=== PATIENT | female | born 1935 | race Caucasian/White ===

== ENCOUNTER → 2017-01-17 | Outpatient (RCR) ==
[2015-11-10 16:40] VITALS: BMI 33.3
--- NOTE | 2016-12-27 14:26 | RS.OPPTEV2 ---
Date of Note: 12/25/16 Visit #: 1 Date of Evaluation: 12/25/16 Payer Source: MEDICARE Treatment Diagnosis: Left leg pain, s/p lumbar surgery History of Condition/Mechanism of Injury:: Patient reports having two procedures. States the first procedure was on 11/06/16 and the second procedure was on 11/08/16. Prior Level of Function.....Patient was independent with: ADL's, Self Care, Caregiving, Ambulation/Mobility, Community Integration/Access Functional Limitations: Self Care, ADL's, Reaching, Pushing, Pulling, Lifting, Carrying, Sitting, Standing, Bending, Squatting, Ambulation, Community Access/ Integration Current Subjective/complaints:: Patient report her back is doing well. Now she primarily has left leg pain, mostly at the anterior thigh region. States she has some tingling in the LE. States she has noticed some weakness in the LE's. Reports no symptoms on the right LE. She is not using an assistive device. She is wearing a back support and is to wear it until she goes back to her surgeon. She wear the back support all the time, except in bed or while sitting. She currently has bronchitis and he told her to take off the brace when she is sitting to allow the lungs to expand. Medical History Medical History: Hypertension, Arthritis Surgical History: Cholecystectomy, Hysterectomy Smoking Status: Never smoker Hx Home Medications: Pain medication Patient's Goals: Her goal is to get relief of left LE pain and return to her prior level of function. Pain Assessment - Pain Description Pain Location: left LE Current Pain Intensity: 1/10 Worst Pain Intensity: 9/10 Functional Outcome Measure Oswestry LBP: 46 - G Codes & Severity Modifier G Codes & Modifier: Mobility current CK. Mobility goal CI Source of G Code score: Oswestry LBP scale Observation - Observation Posture: Forward Head, Rounded Shoulders, Decreased Lumbar Lordosis Gait - Gait Pattern Gait Comments: patient ambulates without an assistive device, independently. she demonstrates a slow, guarded gait. Demonstrates short stride. - ROM Comments: Lumbar AROM not tested due to proximity of surgery date. LE AROM is WFL's. - Strength Comments: Left hip strength generally 4/5, all else of bilateral LE's 4+/5. Palpation Comments:: Patient reports no significant tenderness along the lumbar paraspinals. Demonstrates moderate muscle guarding along bilateral lumbar paraspinals. Sensation - Sensation Right Lower Extremity: Intact/Normal Left Lower Extremity: Intact/Normal Balance - Sitting Balance Static Sitting Balance: Good Dynamic Sitting Balance: Good - Standing Balance Static Standing Balance: Good (-) Dynamic Standing Balance: Good (-) Additional Comments: Additional Comments: Left SLR to 45 degrees, Right SLR to 50-55 degrees. Right LE is longer is supine. Interventions - Exercise/Activities/Manual Therapy Exercises/Activities: patient instructed in HEP consisting of hooklying alternating hip flexion, pelvic tilt, and pillow squeeze/hip adduction. Manual Therapy: NA HOME EXERCISE PROGRAM: hooklying alternating hip flexion, pelvic tilt, and pillow squeeze/hip adduction. - Charges Total Direct Minutes: 45 mins Total Treatment Time: 45 mins Procedures billed for this date of service:: MONSE Freed Assessment Assessment: Patient present s/p lumbar surgery. She has been diagnosed with Lumbar radiculopathy. She reports mostly left anterior thigh pain. She has difficulty tolerating prolonged standing or walking due to pain. She reports weakness in the left hip. She demonstrates good potential to benefit from therapeutic exercises to gain stability at her surgical site and strength in the LE's, to help improve her level of function. Patient Education: Education of diagnosis, Body/Joint mechanics, Home Exercise Program, Home Safety, Activity Modification, Education of Plan of Care Rehab Potential: Good Short Term Goals Goal #1: Patient independent in basic HEP Goal to be met by: 01/10/17 Goal #2: SLR equally to 60 degrees. Goal to be met by: 01/10/17 Goal #3: Left hip strength 4+/5. Goal to be met by: 01/10/17 Elevator Constructor Supervisor Goals Goal #1: Pt knows HEP and to continue ex's to maintain functional level. Goal to be met by: 02/15/17 Goal #2: Score on Oswestry LBP scale improved to < 19% impairment. Goal to be met by: 02/15/17 Goal #3: Pt to tolerate standing and walking without LLE pain. Goal to be met by: 02/15/17 Goal #4: Pt able to perform all ADL's and light activities w/o difficulty or pain. Goal to be met by: 02/15/17 Plan - Treatment to be Provided Procedures: Therapeutic Exercises, Therapeutic Activity, Neuromuscular Rehab, Patient Education Modalities: Electrical Stimulation, Cryotherapy, Hot Packs - Treatment Plan Frequency: 2 X week Duration: 6 weeks ORDER # VISITS AND/OR THROUGH DATE: 02/15/17 - Treatment Code (1) Left leg pain Comments: M79.605 (2) Lumbar radiculopathy Comments: M54.16
--- NOTE | 2016-12-28 10:57 | RS.OPPTDN ---
Subjective Date of Note: 12/28/16 Visit #: 2 Date of Evaluation: 12/25/16 Payer Source: MEDICARE Treatment Diagnosis: Left leg pain, s/p lumbar surgery Current Subjective/complaints:: Patient says she takes pain meds ~4-6 hours. She says she has no trouble sleeping and she is taking off her back brace mostly when she sits. Pain Assessment - Pain Description Pain Location: left LE Current Pain Intensity: 1/10 Interventions - Exercise/Activities/Manual Therapy Exercises/Activities: Patient receives passive stretching of: SKTC, HS, Piriformis, bilaterally x 3 reps. Patient performs: pillow squeezes, isometric hip flexion, abd, SAQ, DF green tband, pelvic tilts, alternate LE lift x 10 reps. Sitting: shoulder shrugs, scap adduction, marching, heel/toe raises x 10. Initiated stationary bike x 4 mins for/retro Total minutes of Exercise: 35 Manual Therapy: NA HOME EXERCISE PROGRAM: hooklying alternating hip flexion, pelvic tilt, and pillow squeeze/hip adduction. - Charges Total Direct Minutes: 35 Total Treatment Time: 35 Procedures billed for this date of service:: ex2 Assessment: Patient zackery all therex well. She demo tightness to L HS when compared to R. She should benefit from further trunk stability and build endurance. Patient Education: Education of diagnosis, Body/Joint mechanics, Home Exercise Program, Home Safety, Activity Modification, Education of Plan of Care Patient demonstrates compliance with HEP?: Yes Short Term Goals Goal #1: Patient independent in basic HEP Goal to be met by: 01/10/17 Progress towards Goal:: Progressing Goal #2: SLR equally to 60 degrees. Goal to be met by: 01/10/17 Goal #3: Left hip strength 4+/5. Goal to be met by: 01/10/17 Signalling And Communications Engineer Goals Goal #1: Pt knows HEP and to continue ex's to maintain functional level. Goal to be met by: 02/15/17 Goal #2: Score on Oswestry LBP scale improved to < 19% impairment. Goal to be met by: 02/15/17 Goal #3: Pt to tolerate standing and walking without LLE pain. Goal to be met by: 02/15/17 Goal #4: Pt able to perform all ADL's and light activities w/o difficulty or pain. Goal to be met by: 02/15/17 Plan PLAN OF CARE EXPIRES ON:: 02/15/17 ORDER # VISITS AND/OR THROUGH DATE: 02/15/17 PLAN: Progress Exercises
--- NOTE | 2017-01-02 10:26 | RS.OPPTDN ---
Subjective Date of Note: 01/01/17 Visit #: 3 Date of Evaluation: 12/25/16 Payer Source: MEDICARE Treatment Diagnosis: Left leg pain, s/p lumbar surgery Current Subjective/complaints:: Patient says she did not have any increase in pain following her last session. She and her ask about trying steps for exercise at her home. She says she has 2 steps and may try practicing a few times per day. Her asks if it would be alright to ride in a car for ~4 hours while they visit family next month. Pain Assessment - Pain Description Pain Location: left LE Current Pain Intensity: 08/29 Interventions - Exercise/Activities/Manual Therapy Exercises/Activities: Patient receives passive stretching of: SKTC, HS, Piriformis, bilaterally x 3 reps. Patient performs: pillow squeezes, isometric hip flexion, abd, SAQ, DF green tband, pelvic tilts, alternate LE lift x 10 reps. Sitting: shoulder shrugs, scap adduction with red tband, marching, heel/toe raises, LAQ x 10. Continued stationary bike x 4 mins for/ retro Total minutes of Exercise: 38 Manual Therapy: NA HOME EXERCISE PROGRAM: hooklying alternating hip flexion, pelvic tilt, and pillow squeeze/hip adduction. - Charges Total Direct Minutes: 38 Total Treatment Time: 38 Procedures billed for this date of service:: ex3 Assessment: Patient is able to zackery all therex well and appears to be eager to progress with therex here and at home. Demo good resistance with isometrics and improving flexibility. She was encouraged to talk to her MD about her travelling, but felt she would be fine with taking breaks, stretching, and walking around several times during the drive. Patient Education: Education of diagnosis, Body/Joint mechanics, Home Exercise Program, Home Safety, Activity Modification, Education of Plan of Care Patient demonstrates compliance with HEP?: Yes Short Term Goals Goal #1: Patient independent in basic HEP Goal to be met by: 01/10/17 Progress towards Goal:: Progressing Goal #2: SLR equally to 60 degrees. Goal to be met by: 01/10/17 Goal #3: Left hip strength 4+/5. Goal to be met by: 01/10/17 Custodial Goals Goal #1: Pt knows HEP and to continue ex's to maintain functional level. Goal to be met by: 02/15/17 Goal #2: Score on Oswestry LBP scale improved to < 19% impairment. Goal to be met by: 02/15/17 Goal #3: Pt to tolerate standing and walking without LLE pain. Goal to be met by: 02/15/17 Goal #4: Pt able to perform all ADL's and light activities w/o difficulty or pain. Goal to be met by: 02/15/17 Plan PLAN OF CARE EXPIRES ON:: 02/15/17 ORDER # VISITS AND/OR THROUGH DATE: 02/15/17 PLAN: Progress Exercises
--- NOTE | 2017-01-02 16:11 | RS.OPPTDN ---
Subjective Date of Note: 01/02/17 Visit #: 4 Date of Evaluation: 12/25/16 Payer Source: MEDICARE Treatment Diagnosis: Left leg pain, s/p lumbar surgery Current Subjective/complaints:: Patient c/o L ankle pain. She says it was bad last night and a little better today. Reports she has been walking around more. Pain Assessment - Pain Description Pain Location: left LE Current Pain Intensity: 1/10 Interventions - Exercise/Activities/Manual Therapy Exercises/Activities: Patient receives passive stretching of: SKTC, HS, Piriformis, bilaterally x 3 reps. Patient performs: pillow squeezes, isometric hip flexion, abd, SAQ, DF green tband, pelvic tilts, alternate LE lift increased to 2 x 10 reps. Sitting: shoulder shrugs, scap adduction with red tband, marching, heel/toe raises, LAQ x 10. Continued stationary bike x 6 mins for/retro Total minutes of Exercise: 40 Manual Therapy: NA HOME EXERCISE PROGRAM: hooklying alternating hip flexion, pelvic tilt, and pillow squeeze/hip adduction. - Charges Total Direct Minutes: 40 Total Treatment Time: 40 Procedures billed for this date of service:: ex3 Assessment: Patient progressing well with trunk stability and is able to rubina and doff back brace independently. C/c at this time is L lateral ankle pain. Patient Education: Education of diagnosis, Body/Joint mechanics, Home Exercise Program, Home Safety, Activity Modification, Education of Plan of Care Patient demonstrates compliance with HEP?: Yes Short Term Goals Goal #1: Patient independent in basic HEP Goal to be met by: 01/10/17 Progress towards Goal:: Progressing Goal #2: SLR equally to 60 degrees. Goal to be met by: 01/10/17 Progress towards Goal:: Progressing Goal #3: Left hip strength 4+/5. Goal to be met by: 01/10/17 Sand Blaster Goals Goal #1: Pt knows HEP and to continue ex's to maintain functional level. Goal to be met by: 02/15/17 Goal #2: Score on Oswestry LBP scale improved to < 19% impairment. Goal to be met by: 02/15/17 Goal #3: Pt to tolerate standing and walking without LLE pain. Goal to be met by: 02/15/17 Goal #4: Pt able to perform all ADL's and light activities w/o difficulty or pain. Goal to be met by: 02/15/17 Plan PLAN OF CARE EXPIRES ON:: 02/15/17 ORDER # VISITS AND/OR THROUGH DATE: 02/15/17 PLAN: Progress Exercises
--- NOTE | 2017-01-12 13:09 | RS.OPPTDN ---
Subjective Date of Note: 01/11/17 Visit #: 4 Date of Evaluation: 12/25/16 Payer Source: MEDICARE Treatment Diagnosis: Left leg pain, s/p lumbar surgery Current Subjective/complaints:: Patient states her L leg is still a problem, but is hurting less than when she first began therapy. She denies any soreness from therapy yesterday. Pain Assessment - Pain Description Pain Location: left LE Current Pain Intensity: 1/10 Interventions - Exercise/Activities/Manual Therapy Exercises/Activities: Patient receives passive stretching of: SKTC, HS, Piriformis, bilaterally x 3 reps. Patient performs: ball squeezes, isometric hip flexion, abd, SAQ 2#, DF green tband, pelvic tilts, alternate LE lift increased to 1 1/2# each leg 2 x 10 reps. Sitting: shoulder shrugs, scap adduction with red tband, marching, heel/toe raises, weight shifting on therapy foam using hand rail x 10, forward step board and lateral 2x5. Continued stationary bike x 8 mins for/retro Total minutes of Exercise: 42 Manual Therapy: NA HOME EXERCISE PROGRAM: hooklying alternating hip flexion, pelvic tilt, and pillow squeeze/hip adduction. - Charges Total Direct Minutes: 42 Total Treatment Time: 42 Procedures billed for this date of service:: ex3 Assessment: Patient zackery added therex well without c/o dizziness or demo of LOB. She admits improved L LE pain compared to first beginning therapy, but remains weak and sore when compared to the R. Patient Education: Education of diagnosis, Body/Joint mechanics, Home Exercise Program, Home Safety, Activity Modification, Education of Plan of Care Patient demonstrates compliance with HEP?: Yes Short Term Goals Goal #1: Patient independent in basic HEP Goal to be met by: 01/10/17 Progress towards Goal:: Progressing Goal #2: SLR equally to 60 degrees. Goal to be met by: 01/10/17 Progress towards Goal:: Progressing Goal #3: Left hip strength 4+/5. Goal to be met by: 01/10/17 Fci Goals Goal #1: Pt knows HEP and to continue ex's to maintain functional level. Goal to be met by: 02/15/17 Goal #2: Score on Oswestry LBP scale improved to < 19% impairment. Goal to be met by: 02/15/17 Goal #3: Pt to tolerate standing and walking without LLE pain. Goal to be met by: 02/15/17 Goal #4: Pt able to perform all ADL's and light activities w/o difficulty or pain. Goal to be met by: 02/15/17 Plan PLAN OF CARE EXPIRES ON:: 02/15/17 ORDER # VISITS AND/OR THROUGH DATE: 02/15/17 PLAN: Progress Exercises
--- NOTE | 2017-01-17 13:31 | RS.OPPTDN ---
Subjective Date of Note: 01/17/17 Visit #: 6 Date of Evaluation: 12/25/16 Payer Source: MEDICARE Treatment Diagnosis: Left leg pain, s/p lumbar surgery Current Subjective/complaints:: Patient says she is only taking one pain pill in the morning and one at bedtime. She says she is sleeping better and finds positioning is slightly easier. Her C/c is L knee pain, but does not feel exercises are irritating it. Pain Assessment - Pain Description Pain Location: left LE Current Pain Intensity: Back pain is not a prob, says L knee pain is c/c Interventions - Exercise/Activities/Manual Therapy Exercises/Activities: Patient receives passive stretching of: SKTC, HS, Piriformis, bilaterally x 3 reps. Patient performs: ball squeezes, isometric hip flexion, abd, SAQ 2#, DF green tband, pelvic tilts, alternate LE lift increased to 1 1/2# each leg 2 x 10 reps. Sitting: shoulder shrugs, scap adduction with red tband, marching, heel/toe raises, weight shifting on therapy foam using hand rail x 10, forward step board and lateral 2x5. 1 1/2# each ankle for hip abd and marching. Bike occupied, will attempt next session. Total minutes of Exercise: 38 Manual Therapy: NA HOME EXERCISE PROGRAM: hooklying alternating hip flexion, pelvic tilt, and pillow squeeze/hip adduction. - Charges Total Direct Minutes: 38 Total Treatment Time: 38 Procedures billed for this date of service:: ex3 Assessment: Patient weaning from back brace and walking around at home without it. Back pain is only slight, but her main issue is bilateral knee pain, more so the L. She is showing improved strength to both LE's and bal with dynamic activities. Patient Education: Education of diagnosis, Body/Joint mechanics, Home Exercise Program, Home Safety, Activity Modification, Education of Plan of Care Patient demonstrates compliance with HEP?: Yes Short Term Goals Goal #1: Patient independent in basic HEP Goal to be met by: 01/10/17 Progress towards Goal:: Progressing Goal #2: SLR equally to 60 degrees. Goal to be met by: 01/10/17 Progress towards Goal:: Progressing Goal #3: Left hip strength 4+/5. Goal to be met by: 01/10/17 Progress towards Goal:: Progressing Senior Living Goals Goal #1: Pt knows HEP and to continue ex's to maintain functional level. Goal to be met by: 02/15/17 Progress towards goal: Progressing Goal #2: Score on Oswestry LBP scale improved to < 19% impairment. Goal to be met by: 02/15/17 Progress towards goal: Progressing Goal #3: Pt to tolerate standing and walking without LLE pain. Goal to be met by: 02/15/17 Progress towards goal: Progressing Goal #4: Pt able to perform all ADL's and light activities w/o difficulty or pain. Goal to be met by: 02/15/17 Plan PLAN OF CARE EXPIRES ON:: 02/15/17 ORDER # VISITS AND/OR THROUGH DATE: 02/15/17 PLAN: Progress Exercises
== END ==
PROVIDERS: ATTEND Orthopaedic Surgery Orthopaedic Surgery of the Spine
DX: M54.16 Radiculopathy, lumbar region (principal)

== ENCOUNTER → 2017-02-16 | Outpatient (RCR) ==
[2015-11-10 16:40] VITALS: BMI 33.3
--- NOTE | 2017-01-22 10:50 | RS.OPPTDN ---
Subjective Date of Note: 01/22/17 Visit #: 7 Date of Evaluation: 12/25/16 Payer Source: MEDICARE Treatment Diagnosis: Left leg pain, s/p lumbar surgery Current Subjective/complaints:: Patient says her knees are really bothering her due to the weather. She says she has weaned to using her brace 50% of the time. Pain Assessment - Pain Description Pain Location: bilateral knees Interventions - Exercise/Activities/Manual Therapy Exercises/Activities: Patient receives passive stretching of: SKTC, HS, Piriformis, bilaterally x 3 reps. Patient performs: ball squeezes, isometric hip flexion, abd, SAQ increased to 3# for R, none on L, DF green tband, pelvic tilts, alternate LE lift with 2# wand for trunk 2 x 10 reps. Sitting: shoulder shrugs, scap adduction progressed to green tband, Standing: marching, heel/toe raises, weight shifting on therapy foam using hand rail x 10, 1 1/2# each ankle for hip abd and marching. Stationary bike for/retro x 7 mins Total minutes of Exercise: 38 Manual Therapy: NA HOME EXERCISE PROGRAM: hooklying alternating hip flexion, pelvic tilt, and pillow squeeze/hip adduction. - Charges Total Direct Minutes: 38 Total Treatment Time: 38 Procedures billed for this date of service:: ex3 Assessment: Patient having increased bilateral knee pain today she feels is weather related. She is weaning down her back brace and able to zackery increased activity in the department and working on HeP. HS length appears to be increased today. Patient Education: Education of diagnosis, Body/Joint mechanics, Home Exercise Program, Home Safety, Activity Modification, Education of Plan of Care Patient demonstrates compliance with HEP?: Yes Short Term Goals Goal #1: Patient independent in basic HEP Goal to be met by: 01/10/17 Progress towards Goal:: Progressing Goal #2: SLR equally to 60 degrees. Goal to be met by: 01/10/17 Progress towards Goal:: Progressing Goal #3: Left hip strength 4+/5. Goal to be met by: 01/10/17 Progress towards Goal:: Progressing Long-Term Goals Goal #1: Pt knows HEP and to continue ex's to maintain functional level. Goal to be met by: 02/15/17 Progress towards goal: Progressing Goal #2: Score on Oswestry LBP scale improved to < 19% impairment. Goal to be met by: 02/15/17 Progress towards goal: Progressing Goal #3: Pt to tolerate standing and walking without LLE pain. Goal to be met by: 02/15/17 Progress towards goal: Progressing Goal #4: Pt able to perform all ADL's and light activities w/o difficulty or pain. Goal to be met by: 02/15/17 Plan PLAN OF CARE EXPIRES ON:: 02/15/17 ORDER # VISITS AND/OR THROUGH DATE: 02/15/17 PLAN: Progress Exercises
--- NOTE | 2017-01-25 11:36 | RS.OPPTDN ---
Subjective Date of Note: 01/25/17 Visit #: 8 Date of Evaluation: 12/25/16 Payer Source: MEDICARE Treatment Diagnosis: Left leg pain, s/p lumbar surgery Current Subjective/complaints:: Patient says she still has pain to both knees which is limiting her ambulation. She c/o L more than R and generally throughout the knee. She says she uses ice at home and has mild swelling to the L knee. Pain Assessment - Pain Description Pain Location: bilateral knees Current Pain Intensity: Back pain is not a prob, says L knee pain is c/c Interventions - Exercise/Activities/Manual Therapy Exercises/Activities: Patient receives gentler passive stretching of: SKTC, HS, and lower trunk rotation bilaterally x 3 reps. Patient performs: ball squeezes , isometric hip flexion, abd, SAQ increased to 2# for R, none on L, DF green tband, pelvic tilts, alternate LE lift with 2# wand for trunk 2 x 10 reps. Sitting: shoulder shrugs, scap adduction progressed to green tband, Standing: marching, heel/toe raises, weight shifting on (no foam today) using hand rail x 10, Omitted some activity related to knee pain. Total minutes of Exercise: 38 Manual Therapy: NA HOME EXERCISE PROGRAM: hooklying alternating hip flexion, pelvic tilt, and pillow squeeze/hip adduction. - Charges Total Direct Minutes: 38 Total Treatment Time: 38 Procedures billed for this date of service:: ex3 Assessment: Patient continues with pain to bilateral knees especially the L generally throughout the joint. She is able to zackery all modified activity today with discomfort with nearly all therex regarding the L knee. Patient Education: Education of diagnosis, Body/Joint mechanics, Home Exercise Program, Home Safety, Activity Modification, Education of Plan of Care Short Term Goals Goal #1: Patient independent in basic HEP Goal to be met by: 01/10/17 Progress towards Goal:: Progressing Goal #2: SLR equally to 60 degrees. Goal to be met by: 01/10/17 Progress towards Goal:: Progressing Goal #3: Left hip strength 4+/5. Goal to be met by: 01/10/17 Progress towards Goal:: Progressing Director Of Casino Marketing Goals Goal #1: Pt knows HEP and to continue ex's to maintain functional level. Goal to be met by: 02/15/17 Progress towards goal: Progressing Goal #2: Score on Oswestry LBP scale improved to < 19% impairment. Goal to be met by: 02/15/17 Progress towards goal: Progressing Goal #3: Pt to tolerate standing and walking without LLE pain. Goal to be met by: 02/15/17 Progress towards goal: Progressing Goal #4: Pt able to perform all ADL's and light activities w/o difficulty or pain. Goal to be met by: 02/15/17 Plan PLAN OF CARE EXPIRES ON:: 02/15/17 ORDER # VISITS AND/OR THROUGH DATE: 02/15/17 PLAN: Progress Exercises (encouraged patient to try heat to the L knee if not swollen over the weekend for relief of pain and stiffness)
--- NOTE | 2017-01-29 10:53 | RS.OPPTDN ---
Subjective Date of Note: 01/29/17 Visit #: 9 Date of Evaluation: 12/25/16 Payer Source: MEDICARE Treatment Diagnosis: Left leg pain, s/p lumbar surgery Current Subjective/complaints:: Patient continues to report L knee pain. Says she could not tell a difference with avoiding some of the exercises last week. She says she is using a TENS unit to her L hip and leg over the weekend, which helped. Pain Assessment - Pain Description Pain Location: bilateral knees Current Pain Intensity: Back pain is not a prob, says L knee pain is c/c Interventions - Exercise/Activities/Manual Therapy Exercises/Activities: Patient receives gentler passive stretching of: SKTC, HS, and lower trunk rotation bilaterally x 3 reps. Patient performs: ball squeezes , isometric hip flexion, abd, SAQ 2# for R, none on L, DF green tband, pelvic tilts, alternate LE lift (no weight for LE's) with 2# wand for trunk 2 x 10 reps. Sitting: shoulder shrugs, scap adduction progressed to green tband, 2x10. Stationary bike x 6 mins for/retro with prompts to switch dir. Total minutes of Exercise: 38 Manual Therapy: NA HOME EXERCISE PROGRAM: hooklying alternating hip flexion, pelvic tilt, and pillow squeeze/hip adduction. - Charges Total Direct Minutes: 38 Total Treatment Time: 38 Procedures billed for this date of service:: ex3 Assessment: Angie continues with pain to the L knee despite being gentler with stretches and omitting some activities here. For the first time performing SAQ (no weight) on the L, she shakes and has a difficult time fully extending the knee. Patient Education: Education of diagnosis, Body/Joint mechanics, Home Exercise Program, Home Safety, Activity Modification, Education of Plan of Care Patient demonstrates compliance with HEP?: Yes Short Term Goals Goal #1: Patient independent in basic HEP Goal to be met by: 01/10/17 Progress towards Goal:: Progressing Goal #2: SLR equally to 60 degrees. Goal to be met by: 01/10/17 Progress towards Goal:: Progressing Goal #3: Left hip strength 4+/5. Goal to be met by: 01/10/17 Progress towards Goal:: Progressing Craft Superintendent Goals Goal #1: Pt knows HEP and to continue ex's to maintain functional level. Goal to be met by: 02/15/17 Progress towards goal: Progressing Goal #2: Score on Oswestry LBP scale improved to < 19% impairment. Goal to be met by: 02/15/17 Progress towards goal: Progressing Goal #3: Pt to tolerate standing and walking without LLE pain. Goal to be met by: 02/15/17 Progress towards goal: Progressing Goal #4: Pt able to perform all ADL's and light activities w/o difficulty or pain. Goal to be met by: 02/15/17 Plan PLAN OF CARE EXPIRES ON:: 02/15/17 ORDER # VISITS AND/OR THROUGH DATE: 02/15/17 PLAN: Continue Plan of Care (as able)
--- NOTE | 2017-02-01 13:53 | RS.OPPTDN ---
Subjective Date of Note: 02/01/17 Visit #: 10 Date of Evaluation: 12/25/16 Payer Source: MEDICARE Treatment Diagnosis: Left leg pain, s/p lumbar surgery Current Subjective/complaints:: Patient says she has a new order for 6 more weeks. She states her L knee is really bothering her, but her PA says it is related to nerve pain from her back and will just need to heal (per patient). Pain Assessment - Pain Description Pain Location: bilateral knees Current Pain Intensity: Back pain is not a prob, says L knee pain is c/c - Treatment Modality: Electrical Stim Unattended Parameters/Method Applied: hivolt vertically @ 150 pk volts x 20 mins to bilateral lumbar paraspinals and superior gluteal region Patient Position: Supine - Heat/Cryotherapy Treatment: Hot Pack (mid to low back supine and to L knee) Interventions - Exercise/Activities/Manual Therapy Exercises/Activities: Patient performs: ball squeezes, isometric hip flexion, abd, SAQ 2# for R, none on L, DF green tband, pelvic tilts, hip abd in hooklying with red tband, QS 2x10. Total minutes of Exercise: 22 Manual Therapy: NA HOME EXERCISE PROGRAM: hooklying alternating hip flexion, pelvic tilt, and pillow squeeze/hip adduction. - Charges Total Direct Minutes: 22 Total Treatment Time: 42 Procedures billed for this date of service:: hp, estim (un), ex Assessment: Patient had continued with moderate L knee pain and difficulty with ambulation as a result. With adding estim/heat today, knee pain was lessened and had significantly less difficulty with performing therex on the L side. She has a new order to continue 3x6 weeks, will continue modalities to check for improvement with pain. Patient Education: Education of diagnosis, Body/Joint mechanics, Home Exercise Program, Home Safety, Activity Modification, Education of Plan of Care Patient demonstrates compliance with HEP?: Yes (when able) Short Term Goals Goal #1: Patient independent in basic HEP Goal to be met by: 01/10/17 Progress towards Goal:: Progressing Goal #2: SLR equally to 60 degrees. Goal to be met by: 01/10/17 Progress towards Goal:: Progressing Goal #3: Left hip strength 4+/5. Goal to be met by: 01/10/17 Progress towards Goal:: Progressing Graphic Engineer Goals Goal #1: Pt knows HEP and to continue ex's to maintain functional level. Goal to be met by: 03/15/17 Progress towards goal: Progressing Goal #2: Score on Oswestry LBP scale improved to < 19% impairment. Goal to be met by: 03/15/17 Progress towards goal: Progressing Goal #3: Pt to tolerate standing and walking without LLE pain. Goal to be met by: 03/15/17 Progress towards goal: Progressing Goal #4: Pt able to perform all ADL's and light activities w/o difficulty or pain. Goal to be met by: 03/15/17 Plan PLAN OF CARE EXPIRES ON:: 03/15/17 ORDER # VISITS AND/OR THROUGH DATE: 03/15/17 PLAN: Progress Exercises (continue modalities)
--- NOTE | 2017-02-05 14:52 | RS.OPPTDN ---
Subjective Date of Note: 02/05/17 Visit #: 11 Date of Evaluation: 12/25/16 Payer Source: MEDICARE Treatment Diagnosis: Left leg pain, s/p lumbar surgery Current Subjective/complaints:: Patient says she feels the estim helped her leg pain. She says she has fully weaned from her brace. Pain Assessment - Pain Description Pain Location: bilateral knees Current Pain Intensity: Back pain is not a prob, says L knee pain is c/c - Treatment Modality: Electrical Stim Unattended Parameters/Method Applied: hivolt x 20 mins @ 135-175 pk volts to the bilateral lumbar paraspinals and superior gluteal region Patient Position: Supine - Heat/Cryotherapy Treatment: Hot Pack (low back) Interventions - Exercise/Activities/Manual Therapy Exercises/Activities: Patient receives passive stretching bilaterally SKTC, HS, piriformis, lower trunk rotation. Patient performs: ball squeezes, isometric hip flexion, abd, SAQ 2 1/2# for R, none on L, DF green tband, pelvic tilts, hip abd in hooklying with red tband, QS 2x10. Total minutes of Exercise: 22 Manual Therapy: NA HOME EXERCISE PROGRAM: hooklying alternating hip flexion, pelvic tilt, and pillow squeeze/hip adduction. - Charges Total Direct Minutes: 22 Total Treatment Time: 42 Procedures billed for this date of service:: hp, estim (un Assessment: Patient experiencing less L LE pain following estim today and previous session. She demo improved ease and zackery of therex today. Patient Education: Education of diagnosis, Body/Joint mechanics, Home Exercise Program, Home Safety, Activity Modification, Education of Plan of Care Patient demonstrates compliance with HEP?: Yes Short Term Goals Goal #1: Patient independent in basic HEP Goal to be met by: 01/10/17 Progress towards Goal:: Progressing Goal #2: SLR equally to 60 degrees. Goal to be met by: 01/10/17 Progress towards Goal:: Progressing Goal #3: Left hip strength 4+/5. Goal to be met by: 01/10/17 Progress towards Goal:: Progressing Stitcher Set Up Operator Automatic Goals Goal #1: Pt knows HEP and to continue ex's to maintain functional level. Goal to be met by: 03/15/17 Progress towards goal: Progressing Goal #2: Score on Oswestry LBP scale improved to < 19% impairment. Goal to be met by: 03/15/17 Progress towards goal: Progressing Goal #3: Pt to tolerate standing and walking without LLE pain. Goal to be met by: 03/15/17 Progress towards goal: Progressing Goal #4: Pt able to perform all ADL's and light activities w/o difficulty or pain. Goal to be met by: 03/15/17 Plan PLAN OF CARE EXPIRES ON:: 02/13/17 ORDER # VISITS AND/OR THROUGH DATE: 03/15/17 PLAN: Progress Exercises (continue modalities)
--- NOTE | 2017-02-07 14:42 | RS.OPPTDN ---
Subjective Date of Note: 02/07/17 Visit #: 12 Date of Evaluation: 12/25/16 Payer Source: MEDICARE Treatment Diagnosis: Left leg pain, s/p lumbar surgery Current Subjective/complaints:: Patient c/o increased pain today. She says she felt better after last session and feels estim is helping, just having a bad day today. Pain Assessment - Pain Description Pain Location: L knee Current Pain Intensity: Back pain is not a prob, says L knee pain is c/c - Treatment Modality: Electrical Stim Unattended Parameters/Method Applied: IFC @ 18 pk volts x 20 mins to mid to low back Patient Position: Supine - Heat/Cryotherapy Treatment: Hot Pack Interventions - Exercise/Activities/Manual Therapy Exercises/Activities: Patient receives passive stretching bilaterally SKTC, HS, piriformis, lower trunk rotation. Patient performs: ball squeezes, isometric hip flexion, abd, SAQ 2 1/2# for R, none on L, DF green tband, pelvic tilts, hip abd in hooklying with red tband, QS 2x10. Total minutes of Exercise: 22 Manual Therapy: NA HOME EXERCISE PROGRAM: hooklying alternating hip flexion, pelvic tilt, and pillow squeeze/hip adduction. - Charges Total Direct Minutes: 22 Total Treatment Time: 42 Procedures billed for this date of service:: hp, estim (un), ex Assessment: Patient admitting increased pain today, but was reduced with modalities. She had ambulated with less guarded gt upon leaving session today. HS stretching zackery better to the L. Patient Education: Education of diagnosis, Body/Joint mechanics, Home Exercise Program, Home Safety, Activity Modification, Education of Plan of Care Patient demonstrates compliance with HEP?: Yes Short Term Goals Goal #1: Patient independent in basic HEP Goal to be met by: 01/10/17 Progress towards Goal:: Progressing Goal #2: SLR equally to 60 degrees. Goal to be met by: 01/10/17 Progress towards Goal:: Progressing Goal #3: Left hip strength 4+/5. Goal to be met by: 01/10/17 Progress towards Goal:: Progressing Deputy Director Goals Goal #1: Pt knows HEP and to continue ex's to maintain functional level. Goal to be met by: 03/15/17 Progress towards goal: Progressing Goal #2: Score on Oswestry LBP scale improved to < 19% impairment. Goal to be met by: 03/15/17 Progress towards goal: Progressing Goal #3: Pt to tolerate standing and walking without LLE pain. Goal to be met by: 03/15/17 Progress towards goal: Progressing Goal #4: Pt able to perform all ADL's and light activities w/o difficulty or pain. Goal to be met by: 03/15/17 Plan PLAN OF CARE EXPIRES ON:: 03/15/17 ORDER # VISITS AND/OR THROUGH DATE: 03/15/17 PLAN: Continue Plan of Care
--- NOTE | 2017-02-12 14:21 | RS.OPPTDN ---
Subjective Date of Note: 02/12/17 Visit #: 13 Date of Evaluation: 12/25/16 Payer Source: MEDICARE Treatment Diagnosis: Left leg pain, s/p lumbar surgery Current Subjective/complaints:: Patient says treatment relief seems to be for 1- 2 days. She says her back is fine, but still battling with the L knee. She has a MD appt at the same day as PT and asks to cancel it. Pain Assessment - Pain Description Pain Location: L knee Current Pain Intensity: Back pain is not a prob, says L knee pain is c/c - Treatment Modality: Electrical Stim Unattended Parameters/Method Applied: hivolt 4 large pads @ 205 pk volts x 20 mins to bilateral lumbar paraspinals and into SI region. Patient Position: Supine - Heat/Cryotherapy Treatment: Hot Pack Interventions - Exercise/Activities/Manual Therapy Exercises/Activities: Patient receives passive stretching bilaterally SKTC, HS, piriformis, lower trunk rotation. Patient performs: ball squeezes, isometric hip flexion, abd, SAQ 2 1/2# for R, none on L, DF green tband, pelvic tilts, hip abd in hooklying with red tband, QS 2x10. Total minutes of Exercise: 22 Manual Therapy: NA HOME EXERCISE PROGRAM: hooklying alternating hip flexion, pelvic tilt, and pillow squeeze/hip adduction. - Charges Total Direct Minutes: 22 Total Treatment Time: 42 Procedures billed for this date of service:: hp, estim (un), ex Assessment: Patient experiencing about 1-2 days of relief with therapy, but remains with L knee being the most problematic. She denies having any trouble now with amb after being fully weaned from her back brace. Patient Education: Education of diagnosis, Body/Joint mechanics, Home Exercise Program, Home Safety, Activity Modification, Education of Plan of Care Patient demonstrates compliance with HEP?: Yes Short Term Goals Goal #1: Patient independent in basic HEP Goal to be met by: 01/10/17 Progress towards Goal:: Progressing Goal #2: SLR equally to 60 degrees. Goal to be met by: 01/10/17 Progress towards Goal:: Progressing Goal #3: Left hip strength 4+/5. Goal to be met by: 01/10/17 Progress towards Goal:: Progressing Residential Goals Goal #1: Pt knows HEP and to continue ex's to maintain functional level. Goal to be met by: 03/15/17 Progress towards goal: Progressing Goal #2: Score on Oswestry LBP scale improved to < 19% impairment. Goal to be met by: 03/15/17 Progress towards goal: Progressing Goal #3: Pt to tolerate standing and walking without LLE pain. Goal to be met by: 03/15/17 Progress towards goal: Progressing Goal #4: Pt able to perform all ADL's and light activities w/o difficulty or pain. Goal to be met by: 03/15/17 Plan PLAN OF CARE EXPIRES ON:: 03/15/17 ORDER # VISITS AND/OR THROUGH DATE: 03/15/17 PLAN: Progress Exercises
--- NOTE | 2017-02-16 14:33 | RS.OPPTDN ---
Subjective Date of Note: 02/16/17 Visit #: 14 Date of Evaluation: 12/25/16 Payer Source: MEDICARE Treatment Diagnosis: Left leg pain, s/p lumbar surgery Current Subjective/complaints:: Patient says she had more soreness after her last therapy session, but when she had awakened in the morning it was significantly less than usual. C/c is L leg pain. Denies back pain as of current. Pain Assessment - Pain Description Pain Location: L knee Current Pain Intensity: no back pain, only L LE pain - Treatment Modality: Electrical Stim Unattended Parameters/Method Applied: 4 large pads hivolt vertically @ 180-205 pk volts x 20 mins to bilateral lumbar and superior glut region Patient Position: Supine - Heat/Cryotherapy Treatment: Hot Pack (mid to low back) Interventions - Exercise/Activities/Manual Therapy Exercises/Activities: Patient receives passive stretching bilaterally SKTC, HS, omitted piriformis for the L, lower trunk rotation. Patient performs: ball squeezes, isometric hip flexion, abd, SAQ 3# for R, none on L, DF green tband, pelvic tilts, hip abd in hooklying with red tband, QS 2x10. Returned to stationary bike x 5 mins for/retro. Total minutes of Exercise: 22 Manual Therapy: NA HOME EXERCISE PROGRAM: hooklying alternating hip flexion, pelvic tilt, and pillow squeeze/hip adduction. - Charges Total Direct Minutes: 22 Total Treatment Time: 42 Procedures billed for this date of service:: hp, estim (un), ex Assessment: Patient shows improved zackery to activity in dept with more controlled motion with regards to the L LE and increased manual resistance. She resumed the stationary bike without difficulty today. Popping felt with SAQ (L). Patient Education: Education of diagnosis, Body/Joint mechanics, Home Exercise Program, Home Safety, Activity Modification, Education of Plan of Care Patient demonstrates compliance with HEP?: Yes Short Term Goals Goal #1: Patient independent in basic HEP Goal to be met by: 01/10/17 Progress towards Goal:: Met Goal #2: SLR equally to 60 degrees. Goal to be met by: 01/10/17 Progress towards Goal:: Progressing Goal #3: Left hip strength 4+/5. Goal to be met by: 01/10/17 Progress towards Goal:: Met Swine Nutritionist Goals Goal #1: Pt knows HEP and to continue ex's to maintain functional level. Goal to be met by: 03/15/17 Progress towards goal: Progressing Goal #2: Score on Oswestry LBP scale improved to < 19% impairment. Goal to be met by: 03/15/17 Progress towards goal: Progressing Goal #3: Pt to tolerate standing and walking without LLE pain. Goal to be met by: 03/15/17 Progress towards goal: Progressing Goal #4: Pt able to perform all ADL's and light activities w/o difficulty or pain. Goal to be met by: 03/15/17 Plan PLAN OF CARE EXPIRES ON:: 03/15/17 ORDER # VISITS AND/OR THROUGH DATE: 03/15/17 PLAN: Progress Exercises (continue x 1 more week per continuation order)
== END ==
PROVIDERS: ATTEND Orthopaedic Surgery Orthopaedic Surgery of the Spine
DX: M54.5 Low back pain (principal)

== ENCOUNTER 2017-02-22 10:00 | Outpatient (RCR) ==
[2015-11-10 16:40] VITALS: BMI 33.3
--- NOTE | 2017-02-19 15:15 | RS.OPPTDN ---
Subjective Date of Note: 02/19/17 Visit #: 14 Date of Evaluation: 12/25/16 Payer Source: MEDICARE Treatment Diagnosis: Left leg pain, s/p lumbar surgery Current Subjective/complaints:: Patient says her L leg is getting stronger and pain is less intense and less frequent to the L thigh. She does c/o pain that is mild and intermittent at the lateral lower L leg. Pain Assessment - Pain Description Pain Location: L knee Current Pain Intensity: no back pain, only L LE pain - Treatment Modality: Electrical Stim Unattended Parameters/Method Applied: hivolt 4 large pads @ 180 pk volts x 20 mins to the lumbar paraspinals Treatment Area: placed vertically to the low back Patient Position: Supine - Heat/Cryotherapy Treatment: Hot Pack (mid to low back ) Interventions - Exercise/Activities/Manual Therapy Exercises/Activities: Patient performs continued trunk stability and strengthening to the L knee. ball squeezes, isometric hip flexion, abd, SAQ 3 # for R, added 1# for L, DF green tband, pelvic tilts, hip abd in hooklying with green tband, QS 2x10. SLR x 10. Returned to stationary bike x 7 mins for/ retro. Total minutes of Exercise: 17 Manual Therapy: NA HOME EXERCISE PROGRAM: hooklying alternating hip flexion, pelvic tilt, and pillow squeeze/hip adduction. - Charges Total Direct Minutes: 17 Total Treatment Time: 37 Procedures billed for this date of service:: hp, estim (un), ex Assessment: Patient progressing with less pain to the L upper leg, but maintains mild pain to the lateral portion of the knee and extending to the lateral calf. She demo no difficulty now with adding weight to the L LE and demo good resistance during isometrics to that side. Improved ease with bed transfers related to her back. Patient Education: Education of diagnosis, Body/Joint mechanics, Home Exercise Program, Home Safety, Activity Modification, Education of Plan of Care Patient demonstrates compliance with HEP?: Yes Short Term Goals Goal #1: Patient independent in basic HEP Goal to be met by: 01/10/17 Progress towards Goal:: Met Goal #2: SLR equally to 60 degrees. Goal to be met by: 01/10/17 Progress towards Goal:: Progressing Goal #3: Left hip strength 4+/5. Goal to be met by: 01/10/17 Progress towards Goal:: Met Bi Tri Operator Goals Goal #1: Pt knows HEP and to continue ex's to maintain functional level. Goal to be met by: 03/15/17 Progress towards goal: Progressing Goal #2: Score on Oswestry LBP scale improved to < 19% impairment. Goal to be met by: 03/15/17 Progress towards goal: Progressing Goal #3: Pt to tolerate standing and walking without LLE pain. Goal to be met by: 03/15/17 Progress towards goal: Progressing Goal #4: Pt able to perform all ADL's and light activities w/o difficulty or pain. Goal to be met by: 03/15/17 Plan PLAN OF CARE EXPIRES ON:: 03/15/17 ORDER # VISITS AND/OR THROUGH DATE: 03/15/17 PLAN: Progress Exercises
--- NOTE | 2017-02-22 16:54 | RS.OPPTDN ---
Subjective Date of Note: 02/22/17 Visit #: 15 Date of Evaluation: 12/25/16 Payer Source: MEDICARE Treatment Diagnosis: Left leg pain, s/p lumbar surgery Current Subjective/complaints:: Patient says her pain is primarily the L knee joint. She is hopeful to prolong possible TKA. She says that L thigh pain is much better and now closer to the upper thigh and hip instead of traveling to the knee. Denies soreness to the back currently. Pain Assessment - Pain Description Pain Location: L knee Current Pain Intensity: no back pain, only L knee pain - Treatment Modality: Electrical Stim Unattended Parameters/Method Applied: hivolt 4 large pads vertically to the lumbar paraspinals and SI @ 150 pk volts x 20 mins to improve L LE pain and localize to the low back. Patient Position: Supine - Heat/Cryotherapy Treatment: Hot Pack Interventions - Exercise/Activities/Manual Therapy Exercises/Activities: Patient resumed receiving low back stretching of HS, SKTC , and Piriformis bilaterally x 3. She performs continued trunk stability and strengthening to the L knee. ball squeezes, isometric hip flexion, abd, SAQ 3 # for R, added 1# for L, DF green tband, pelvic tilts, hip abd in hooklying with green tband, QS 2x10. SLR x 10. Returned to stationary bike x 8 mins for/ retro. Total minutes of Exercise: 22 Manual Therapy: NA HOME EXERCISE PROGRAM: hooklying alternating hip flexion, pelvic tilt, and pillow squeeze/hip adduction. - Charges Total Direct Minutes: 22 Total Treatment Time: 42 Procedures billed for this date of service:: no charges this date Assessment: Improved radiating symptoms to the L LE now isolated to the upper thigh and hip. No back pain currently and L knee joint pain related to OA. She has completely weaned from her brace and progressing with therex well showing improved HS length. Patient Education: Education of diagnosis, Body/Joint mechanics, Home Exercise Program, Home Safety, Activity Modification, Education of Plan of Care Patient demonstrates compliance with HEP?: Yes Short Term Goals Goal #1: Patient independent in basic HEP Goal to be met by: 01/10/17 Progress towards Goal:: Met Goal #2: SLR equally to 60 degrees. Goal to be met by: 01/10/17 Progress towards Goal:: Met Goal #3: Left hip strength 4+/5. Goal to be met by: 01/10/17 Progress towards Goal:: Met Retirement Goals Goal #1: Pt knows HEP and to continue ex's to maintain functional level. Goal to be met by: 03/15/17 Progress towards goal: Progressing Goal #2: Score on Oswestry LBP scale improved to < 19% impairment. Goal to be met by: 03/15/17 Progress towards goal: Progressing Goal #3: Pt to tolerate standing and walking without LLE pain. Goal to be met by: 03/15/17 Progress towards goal: Progressing Goal #4: Pt able to perform all ADL's and light activities w/o difficulty or pain. Goal to be met by: 03/15/17 Plan PLAN OF CARE EXPIRES ON:: 03/15/17 ORDER # VISITS AND/OR THROUGH DATE: 03/15/17 PLAN: Plan for Discharge (Patient was notified about her insurance allowance will progress HEP on her own at this point)
== END 2017-03-19 ==
PROVIDERS: ATTEND Orthopaedic Surgery Orthopaedic Surgery of the Spine
DX: M54.5 Low back pain (principal)

== ENCOUNTER 2017-05-30 10:44 | Outpatient (CLI) ==
[2015-11-10 16:40] VITALS: BMI 33.3
[2017-05-30 11:12] LABS: HEMATOCRIT 30.7 % (37.0-47.0); HEMOGLOBIN 10.4 g/dl (12.0-16.0); MEAN CORPUSCULAR HEMOGLOBIN 30.2 pg (27.0-31.0); MEAN CORPUSCULAR HGB CONC 33.9 (31.8-35.4); MEAN CORPUSCULAR VOLUME 89.2 fl (81.0-99.0); RED BLOOD COUNT 3.44 10^6/ul (4.20-5.40); WHITE BLOOD COUNT 6.49 K/ul (4.6-10.2)
[2017-05-30 11:23] LABS: ADD URINE MICROSCOPIC YES; BILIRUBIN,URINE Negative (NEGATIVE); KETONES,URINE Negative (NEGATIVE); LEUKOCYTE ESTERASE ,URINE Negative (NEGATIVE); NITRITE,URINE Negative (NEGATIVE); PROTEIN,URINE Negative (NEGATIVE); URINE, BLOOD Trace-intact (NEGATIVE)
[2017-05-30 11:51] LABS: ALBUMIN 3.6 g/dL (3.4-5.0); ANION GAP 12.8; BUN/CREATININE RATIO 13.82; CALCIUM 9.5 mg/dL (8.2-10.2); CREATININE 0.94 mg/dL (0.60-1.30); MAGNESIUM 1.9 mg/dL (1.7-2.2); PHOSPHORUS 3.8 mg/dL (2.8-4.1); POTASSIUM 3.8 mmol/L (3.5-5.10); URIC ACID 4.1 mg/dL (2.4-6.0)
[2017-05-31 09:37] LABS: URINE CREATININE 36.1 mg/dL (Not Estab.); URINE TOTAL PROTEIN 6.1 mg/dL (Not Estab.)
== END 2017-05-30 10:45 | disposition home or self-care (01) ==
LOC: LAB 10:44
PROVIDERS: ATTEND Internal Medicine Nephrology
DX: N18.3 Chronic kidney disease, stage 3 (moderate) (principal); I10 Essential (primary) hypertension
CPT/HCPCS: 36415; 80069; 81001; 82306; 82570; 83735; 83970; 84156; 84550; 85027

== ENCOUNTER 2017-06-05 09:32 | Outpatient (CLI) | payer OTHER ==
[2015-11-10 16:40] VITALS: BMI 33.3
--- NOTE | 2017-06-06 08:44 | MAMMO ---
EXAM: Bilateral digital screening mammogram (2-D and 3-D) History: Screening Comparison: Bilateral mammogram 04/25/2016 Findings: MLO and CC views of bilateral breasts demonstrate scattered fibroglandular breast parenchy ma. CAD was reviewed by the radiologist. Tomosynthesis was performed. Stable benign bilateral [address] calcifications and stable benign bilateral breast nodules. There are no dominant masses, no suspi cious microcalcifications and no architectural distortions Impression: Benign stable mammogram. Recommend followup routine screening mammography in 1 year. BIRADS 2
== END 2017-06-05 09:33 | disposition home or self-care (01) ==
LOC: RAD 09:32
PROVIDERS: ATTEND Internal Medicine
DX: Z12.31 Encounter for screening mammogram for malignant neoplasm of breast (principal)
CPT/HCPCS: 77067

== ENCOUNTER 2017-08-29 10:34 | Emergency (ER) ==
[2017-08-29 10:38] VITALS: BP 128/61; TEMP 98.2; BMI 31.4
[2017-08-29] MEDS ORDERED: ZOFRAN 4 MG/2 ML IM STA (10:51)
--- NOTE | 2017-08-29 11:44 | DI ---
EXAM: Two views of the chest. History: Cough. Comparison: Chest radiograph 11/14/2015 Findings: Heart size is upper limits of normal. Elevated right hemidiaphragm again noted. Persiste nt but improving right middle lobe discoid atelectasis. No developing opacities. No acute osseous a bnormalities. Impression: Persistent but improving right middle lobe discoid atelectasis. No developing infiltrate s.
--- NOTE | 2017-08-29 11:53 | CT ---
EXAM: CT of the abdomen pelvis without contrast History: Abdominal pain, nausea and vomiting, left lower quadrant abdominal pain. Comparison: CT abdomen pelvis 05/01/2013 Technique: Multiplanar CT images through the abdomen pelvis were obtained without the administration of IV contrast Findings: Subsegmental atelectasis seen at the lung bases. No acute osseous abnormalities. Postsur gical changes of the lumbar spine. Severe degenerative disc disease at L1-L2, L2-L3 and L5-S1. Stable hepatic cyst. Status post cholecystectomy. Spleen is unremarkable. No peripancreatic inflam mation. Mild atherosclerotic vascular calcifications. Adrenal glands are unremarkable. No renal st ones and no hydronephrosis. 3 cm simple left renal cyst again noted. No bowel obstruction. No free air and no ascites. Colonic diverticulosis. Bladder is not well distended. No focal bladder wall thickening. No perirectal inflammation. Nondilated fluid filled loops of small bowel. There is flu id seen within the colon. Uterus is not seen. Impression: 1. Mild gastroenteritis most likely viral etiology. There is no bowel obstruction. 2. Colonic diverticulosis with no evidence for diverticulitis. 3. Stable simple hepatic cyst. 4. Stable simple left renal cyst
--- NOTE | 2017-08-29 12:04 | ED.PDOC ---
General ED Provider: Dr. JIMENA STERN Chief Complaint: Nausea/Vomiting Stated Complaint: diarrhea Time Seen by Physician: 10:40 (seen with entire nursing staff for a few bouts of diarrhea ) Mode of Arrival: Walk-In Information Source: Patient Exam Limitations: No limitations Primary Care Provider: PHANI KASPER Nursing and Triage Documentation Reviewed and Agree: Yes (no BLACK OR BLOODY STOOLS) Reviewed sepsis parameters & appropriate labs ordered?: Yes System Inflammatory Response Syndrome: Not Applicable Sepsis Protocol: For patient's 13 years and over: Temp is 96.8 and below OR 101 and greater Pulse >90 BPM Resp >20/minute Acutely Altered Mental Status Are patient's symptoms suggestive of a new infection, such as: -Pneumonia -Skin, Soft Tissue -Endocarditis -UTI -Bone, Joint Infection -Implantable Device -Acute Abdominal Infection -Wound Infection -Meningitis -Blood Stream Catheter Infection -Unknown System Inflammatory Response Syndrome: Not Applicable GI Complaint Exam - Vomiting/Diarrhea Complaint/Exam Onset/Duration: 1 day Symptoms Are: Resolved Episodes of Vomiting over last 24 Hours: 0 Episodes of Diarrhea Over Last 24 Hours: 4 Initial Severity: Mild Current Severity: None Aggravating: Reports: None Alleviating: Reports: None Associated Signs and Symptoms: Denies: Dizziness, Light-headedness, Melena, Hematemesis, Fever, Abdominal pain, Cramping Non-GI Risk Factors: Reports: None Surgical Obstruction Risk Factors: Reports: None Related Surgical History: Reports: None Abdominal Findings: Present: None Differential Diagnoses: Viral Gastroenteritis Review of Systems - Review Of Systems Constitutional: Reports: No symptoms Eyes: Reports: No symptoms Ears, Nose, Mouth, Throat: Reports: No symptoms Respiratory: Reports: No symptoms Cardiac: Reports: No symptoms GI: Reports: No symptoms, Diarrhea, Nausea : Reports: No symptoms Musculoskeletal: Reports: No symptoms Skin: Reports: No symptoms Neurological: Reports: No symptoms Endocrine: Reports: No symptoms Hematologic/Lymphatic: Reports: No symptoms All Other Systems: Reviewed and Negative Past Medical History - Past Medical History Previously Healthy: No Endocrine: Reports: None Cardiovascular: Reports: Hypertension Respiratory: Reports: COPD Hematological: Reports: None Gastrointestinal: Reports: GERD Genitourinary: Reports: None Neuro/Psych: Reports: None Musculoskeletal: Reports: None Cancer: Reports: None Last Menstrual Period: n/a - Surgical History General Surgical History: Reports: None - Family History Family History: Reports: None - Social History Smoking Status: Never smoker Hx Substance Use: No Alcohol Screening: Occasionally Physical Exam - Physical Exam Appearance: Well-appearing, No pain distress, Well-nourished Eyes: JEAN, EOMI, Conjunctiva clear ENT: Ears normal, Nose normal, Oropharynx normal Respiratory: Airway patent, Breath sounds clear, Breath sounds equal, Respirations nonlabored Cardiovascular: RRR, Pulses normal, No rub, No murmur GI/: Soft, Nontender, No masses, Bowel sounds normal, No Organomegaly Musculoskeletal: Normal strength, ROM intact, No edema, No calf tenderness Skin: Warm, Dry, Normal color Neurological: Sensation intact, Motor intact, Reflexes intact, Cranial nerves intact, Alert, Oriented Psychiatric: Affect appropriate, Mood appropriate Critical Care Note - Critical Care Note Total Time (mins): 0 Course - Course Hematology/Chemistry: 08/29/17 11:00 08/29/17 11:00 Orders, Labs, Meds: Lab Review 08/29/17 08/29/17 08/29/17 11:00 11:00 11:00 WBC 12.78 H RBC 3.86 L Hgb 12.0 Hct 35.0 L MCV 90.7 MCH 31.1 H MCHC 34.3 RDW Coeff of Zarina 12.9 Plt Count 201 Immature Gran % (Auto) 0.5 Neut % (Auto) 89.8 Lymph % (Auto) 4.9 L [place] % (Auto) 3.5 Eos % (Auto) 1.1 Baso % (Auto) 0.2 Immature Gran # (Auto) 0.1 Neut # 11.5 H Lymph # 0.6 [place] # 0.5 Eos # 0.1 Baso # 0.0 Sodium 140 Potassium 4.1 Chloride 105 Carbon Dioxide 27 Anion Gap 12.1 BUN 22 H Creatinine 0.96 Estimated GFR (MDRD) 56.00 BUN/Creatinine Ratio 22.91 Glucose 117 H Calcium 9.3 Total Bilirubin 0.6 AST 22 ALT 15 Alkaline Phosphatase 59 Total Protein 7.4 Albumin 3.8 Globulin 3.6 Albumin/Globulin Ratio 1.06 Urine Color Urine Clarity Urine pH Ur Specific [place] Urine Protein Urine Glucose (UA) Urine Ketones Urine Blood Urine Nitrite Urine Bilirubin Urine Urobilinogen Ur Leukocyte Esterase Urine Microscopic RBC Urine Microscopic WBC Ur Squamous Epith Cells Urine Bacteria Influenza A (Rapid) Negative by naat Influenza B (Rapid) Negative by naat 08/29/17 11:00 WBC RBC Hgb Hct MCV MCH MCHC RDW Coeff of Zarina Plt Count Immature Gran % (Auto) Neut % (Auto) Lymph % (Auto) [place] % (Auto) Eos % (Auto) Baso % (Auto) Immature Gran # (Auto) Neut # Lymph # [place] # Eos # Baso # Sodium Potassium Chloride Carbon Dioxide Anion Gap BUN Creatinine Estimated GFR (MDRD) BUN/Creatinine Ratio Glucose Calcium Total Bilirubin AST ALT Alkaline Phosphatase Total Protein Albumin Globulin Albumin/Globulin Ratio Urine Color Yellow Urine Clarity Clear Urine pH 6.0 Ur Specific [place] 1.025 Urine Protein Trace Urine Glucose (UA) Negative Urine Ketones Negative Urine Blood 2+ Urine Nitrite Negative Urine Bilirubin Negative Urine Urobilinogen 0.2 Ur Leukocyte Esterase Negative Urine Microscopic RBC 5-10 Urine Microscopic WBC 0-2 Ur Squamous Epith Cells Not present Urine Bacteria Trace Influenza A (Rapid) Influenza B (Rapid) Orders Category Date Time Status EKG-(ED ONLY) Stat CARDIO 08/29/17 10:51 Completed CBC W/ AUTO DIFF Stat LAB 08/29/17 11:00 Completed COMPREHENSIVE METABOLIC PANEL Stat LAB 08/29/17 11:00 Completed FLU A/B MOLECULAR Stat LAB 08/29/17 11:00 Completed MOLECULAR GROUP A STREP Stat LAB 08/29/17 11:00 Completed URINALYSIS C & S IF INDICATED Stat LAB 08/29/17 11:00 Completed Ondansetron HCl/Pf [Zofran 4 mg/2 ml] MEDS 08/29/17 10:51 Discontinued 4 mg IM ONCE STA CHEST, 2 VIEWS PA & LAT Stat RADS 08/29/17 10:[address] ABDOMEN/PELVIS WO CONTRAST Stat RADS 08/29/17 10:50 Completed Medications Discontinued Medications Generic Name Dose Route Start Last Admin Trade Name Freq PRN Reason Stop Dose Admin Ondansetron HCl 4 mg 08/29/17 10:51 08/29/17 11:05 Zofran 4 Mg/2 Ml IM 08/29/17 10:52 4 mg ONCE STA Administration Vital Signs: Temp Pulse Resp BP Pulse Ox 08/29/17 10:35 98.2 F 80 20 128/61 95 Departure - Departure Time of Disposition: 12:11 Disposition: HOME SELF-CARE Discharge Problem: Acute gastroenteritis, Nausea, Vomiting Instructions: Acute Diarrhea (ED) Condition: Good Pt referred to PMD for follow-up: Yes IPMP verified?: Yes Prescriptions: Diphenoxylate HCl/Atropine [Lomotil] 5 ml PO TID #10 disp.syrin Allergies/Adverse Reactions: Allergies No Known Allergies Allergy (Verified 08/29/17 10:39) Home Medications: Ambulatory Orders Calcium Carb & Citrate/Vit D3 [Calcium + Vitamin D3 Caplet] 1 each PO BID [place]-3 Fatty Acids/Fish Oil [Fish Oil 1,200 mg Softgel] 2 each PO BID 05/07/13 Simvastatin [Zocor] 20 mg PO DAILY 05/07/13 Omeprazole [Prilosec] 40 mg PO BID 07/23/14 Amlodipine Besylate [Norvasc] 5 mg PO DAILY 30 Days tablet 07/27/14 Albuterol Sulfate [Albuterol Sulfate Hfa] 1 inh IH QID PRN 11/10/15 Bisoprolol Fumarate [Zebeta] 5 mg PO BID 08/29/17 Diphenoxylate HCl/Atropine [Lomotil] 5 ml PO TID #10 disp.syrin 08/29/17
== END 2017-08-29 12:29 | disposition home or self-care (01) ==
LOC: ED 10:34
DX: K52.9 Noninfective gastroenteritis and colitis, unspecified (principal); Z79.899 Other long term (current) drug therapy
CPT/HCPCS: 36415; 80053; 81001; 85025; 87502; 87651; 93005; 93010; 96372; 99283

== ENCOUNTER 2018-05-29 14:09 | Outpatient (CLI) | payer OTHER | END 2018-05-29 14:10 | disposition home or self-care (01) | LOC: LAB 14:09 | PROVIDERS: ATTEND Internal Medicine Nephrology | DX: N18.3 Chronic kidney disease, stage 3 (moderate) (principal); I10 Essential (primary) hypertension | CPT/HCPCS: 36415; 80069; 81001; 82306; 82570; 83735; 83970; 84156; 84550; 85027 ==

== ENCOUNTER 2018-06-11 10:58 | Outpatient (CLI) | payer OTHER ==
--- NOTE | 2018-06-12 10:20 | MAMMO ---
EXAM: Bilateral digital screening mammogram (2-D and 3-D) History: Screening Comparison: Bilateral mammogram 06/05/2017 Findings: MLO and CC views of bilateral breasts demonstrate promptly fat replaced breast parenchyma. CAD was reviewed by the radiologist. Tomosynthesis was performed. Stable benign bilateral breast nodules. There are no developing masses and no suspicious microcalcifications. Stable benign bilater al vascular calcifications. No architectural distortions Impression: Benign stable mammogram. Recommend followup routine screening mammography in 1 year. BIRADS 2
== END 2018-06-11 10:59 | disposition home or self-care (01) ==
LOC: RAD 10:58
PROVIDERS: ATTEND Internal Medicine
DX: Z12.31 Encounter for screening mammogram for malignant neoplasm of breast (principal)
CPT/HCPCS: 77067